=== PATIENT | female | born 2000 | race Caucasian/White ===

== ENCOUNTER 2019-03-28 06:25 | Day surgery (SDC) | payer OTHER ==
[2019-03-20 14:26] VITALS: BMI 35.6
[~2019-03-28 06:25] MED LIST: DEXAMETHASONE SOD PHOSPHATE 10 MG/ML 1 ML VIAL IV ONE; DEXAMETHASONE SOD PHOSPHATE 4 MG/ML 1 ML VIAL IV ONE; FAMOTIDINE 20 MG/2 ML VIAL IV ONE; LACTATED RINGERS 1,000 ML IV SCH; LIDOCAINE 1% 20 ML VIAL (10MG/ML) FOR IV START INTRADERMA PRN; METOCLOPRAMIDE 5 MG/ML 2 ML VIAL IVP PRN; ONDANSETRON 4 MG/2 ML VIAL IVP ONE; SCOPOLAMINE 1.5MG/72HR PATCH TRANSDERM ONE
[2019-03-28] MEDS ORDERED: MIDAZOLAM 2 MG/2 ML VIAL ONE (07:28)
[2019-03-28] MEDS ORDERED: fentaNYL (PF) 50 MCG/ML 2 ML AMP ONE (07:28)
[2019-03-28] MEDS ORDERED: SUCCINYLCHOLINE CHLORIDE 100 MG/5 ML SYR IV ONE (07:28)
[2019-03-28] MEDS ORDERED: PROPOFOL 10 MG/ML 20 ML VIAL IV ONE (07:28)
[2019-03-28] MEDS ORDERED: diphenhydrAMINE 50 MG/ML 1 ML VIAL ONE (07:28)
[2019-03-28] MEDS ORDERED: LIDOCAINE 1% INJ 10MG/ML (20 ML MDV) ONE (07:28)
--- NOTE | 2019-03-28 08:25 | P.OP ---
Date of Procedure: 03/28/19 Preoperative Diagnosis: Chronic tonsillitis Chronic cryptic tonsillitis Postoperative Diagnosis: Same Procedure(s) Performed: Tonsillectomy Anesthesia: DIMASA Surgeon: Blas Alvarez Estimated Blood Loss (ml): 3 Pathology: other (Bilateral tonsils) Condition: stable Disposition: PACU Indications for Procedure: Is a 18-year-old white female is had difficulties with chronic tonsillitis as well as difficulties with tonsilloliths and debris in the tonsils chronically Operative Findings: Tonsils +3 bilaterally with crypts and debris in the crypts Description of Procedure: PROCEDURE: The patient brought to the operating suite and was placed in the supine position. The patient underwent induction of anesthesia with oral endotracheal intubation without difficulty. The patient is positioned with a head donut and shoulder roll. The patient was prepped and draped in the usual aseptic fashion. The left tonsil was then grasped with a curved Allis clamp and then dissected from the tonsillar fossa in a superior to inferior direction using both blunt and electrocautery dissection in the superior to inferior direction until the tonsil was removed. Once the tonsil was removed, hemostasis was gained with suction cautery. Once hemostatic was obtained the attention was turned to the right where the right tonsil was removed exactly as the left had been. Once this tonsil was removed, hemostasis was gained with suction cautery. Once this tonsil was removed, hemostasis was gained with suction cautery. Once hemostasis was obtained and remained good in both tonsillar fossae as well as the nasopharynx, the patient was suction in oral gastric fashion and the McIvor mouth gag was removed. The patient was allowed to emerge from general anesthesia having tolerated the procedure well. He was extubated in the operating suite and transferred to the postoperative recovery area in satisfactory condition.
[2019-03-28 08:39] VITALS: TEMP 97
[2019-03-28] MEDS: HYDROmorphone 0.5 MG/0.5 ML SYRINGE IVP PRN ×2 (08:57→09:10)
[2019-03-28 09:51] VITALS: PULSE 85; RESP 16
[2019-03-28 10:03] VITALS: BP 125/83
[2019-03-28] MEDS ORDERED: HYDROmorphone 1 MG/ML 1 ML SYRINGE IVP ONE ×2 (10:33→10:44)
== END 2019-03-28 11:10 | disposition home or self-care (01) ==
LOC: OR 06:25
PROVIDERS: ATTEND Otolaryngology
DX: J35.01 Chronic tonsillitis (principal); J35.8 Other chronic diseases of tonsils and adenoids; F90.9 Attention-deficit hyperactivity disorder, unspecified type; Z79.899 Other long term (current) drug therapy; Z80.0 Family history of malignant neoplasm of digestive organs; Z81.1 Family history of alcohol abuse and dependence
CPT/HCPCS: 81025; 88304; 42826; J2250; J1200; J1100; J2405; J2001; J3010; J1170 ×2; J0330; J2704